=== PATIENT | female | born 1980 | race Caucasian/White ===

== ENCOUNTER 2016-08-31 13:21 | Emergency (ER) | payer BC, MEDICAID ==
[2016-08-31 13:54] VITALS: BP 133/84
--- NOTE | 2016-08-31 14:03 | UC ---
Back Pain HPI - HPI Summary HPI Summary: complaint of lower back pain since 04/2016 had MRI- herniated discs in lumbar spine seeing Dr Ibrahim for treatment- can't be seen until 09/10/16 d/t insurance hasn't started PT yet complaint of increase in pain last night - constant aching pain in left lumbar area that is radiating down her left leg denies fever , incontinence took tramadol last night without relief hasn't taken her regular medications and nothing for pain today because her medications make her feel tired - History of Current Complaint Hx Obtained From: Patient Hx Last Menstrual Period: HYSTERECTOMY Character: Aching Aggravating: Movement Alleviating: Rest Associated Signs And Symptoms: Positive: Pain with Weight Bearing <Celina Malik - Last Filed: 08/31/16 14:16> <Sandro Reveles - Last Filed: 09/01/16 11:16> - History of Current Complaint Chief Complaint: UCBackPain Stated Complaint: BACK PAIN Time Seen by Provider: 08/31/16 13:58 - Allergies/Home Medications Allergies/Adverse Reactions: Allergies Allergy/AdvReac Type Severity Reaction Status Date / Time Acetaminophen [From Tylenol] Allergy Severe See Comment Verified 05/26/16 11:04 Penicillins Allergy Severe Anaphylatic Verified 05/26/16 11:04 Shock PMH/Surg Hx/FS Hx/Imm Hx Previously Healthy: No - herniated discs lumbar spine Endocrine History Of: Denies: Diabetes, Thyroid Disease Cardiovascular History Of: Denies: Cardiac Disorders, Hypertension, Pacemaker/ICD Respiratory History Of: Denies: COPD, Asthma GI/ History Of: Denies: Gastroesophageal Reflux, Ulcer, Renal Disease Neurological History Of: Reports: Migraine Denies: CVA, Dementia, Seizures Other History Of: Negative For: Anticoagulant Therapy - Surgical History Surgical History: Yes Surgery Procedure, Year, and Place: HYSTERECTOMY, D&C HYSTEROSCOPY & ABLATION - Family History Known Family History: Positive: None Negative: Cardiac Disease, Hypertension, Diabetes Family History: NON CONTRIBUTORY - Social History Occupation: Employed Full-time Lives: With Family Alcohol Use: None Substance Use Type: None Smoking Status (MU): Heavy Every Day Tobacco Smoker Type: Cigarettes Amount Used/How Often: 1/2 PPD Household Exposure Type: Cigarettes Cessation Counseling: Patient Advised to Stop <Celina Malik - Last Filed: 08/31/16 14:16> Review of Systems Constitutional: Negative Skin: Negative Eyes: Negative ENT: Negative Respiratory: Negative Cardiovascular: Negative Gastrointestinal: Negative Genitourinary: Negative Motor: Negative Neurovascular: Negative Musculoskeletal: Other: - lower back pain Neurological: Negative Psychological: Negative All Other Systems Reviewed And Are Negative: Yes <Celina Malik - Last Filed: 08/31/16 14:16> Physical Exam Triage Information Reviewed: Yes Appearance: Well-Appearing, Well-Nourished, Pain Distress Vital Signs: Initial Vital Signs Temp 97.9 F 08/31/16 13:52 Pulse 101 08/31/16 13:52 Resp 16 08/31/16 13:52 BP 133/84 08/31/16 13:52 Pulse Ox 100 08/31/16 13:52 Vital Signs Reviewed: Yes Eyes: Positive: Conjunctiva Clear ENT: Positive: Normal ENT inspection, Pharynx normal. Negative: Nasal congestion Respiratory: Positive: Lungs clear, Normal breath sounds, No respiratory distress, No accessory muscle use Cardiovascular: Positive: RRR, No Murmur, Pulses Normal Abdomen Description: Positive: Nontender, No Organomegaly, Soft Bowel Sounds: Positive: Present Musculoskeletal: Positive: Other: - BACK- left paraspinal tenderness no pain with percussion of spine no brusign or deformites normal ROM Neurological: Positive: Alert, Other: - negative SLR, DTR intact bilaterally Psychological Exam: Normal <Celina Malik - Last Filed: 08/31/16 14:16> Vital Signs: Initial Vital Signs Temp 97.9 F 08/31/16 13:52 Pulse 101 08/31/16 13:52 Resp 16 08/31/16 13:52 BP 133/84 08/31/16 13:52 Pulse Ox 100 08/31/16 13:52 <Sandro Reveles - Last Filed: 09/01/16 11:16> Back Pain Course/Dx - Course Course Of Treatment: exam completed- exacerbation of chronic back pain. no red flags to warrant further imaging. already is under treatment for lower back pain. will refer to PT and start NSAIDS- continue flexeril and weight lifting restrictions until re-evaluation by PT and Dr Ibrahim - Differential Dx/Diagnosis Differential Diagnosis/HQI/PQRI: Herniated Disc, Strain, Sprain Provider Diagnoses: lower back pain with radiculopathy <Celina Malik - Last Filed: 08/31/16 14:16> - Course Course Of Treatment: I was available for consultation. This patient was seen by mid level provider. The patient was not presented, seen, or examined by me. WR. <Sandro Reveles - Last Filed: 09/01/16 11:16> Discharge <Celina Malik - Last Filed: 08/31/16 14:16> <Sandro Reveles - Last Filed: 09/01/16 11:16> - Discharge Plan Condition: Stable Disposition: HOME Prescriptions: Ibuprofen TAB* [Motrin TAB* 800 MG] 800 mg PO TID #30 tab Patient Education Materials: Lumbar Radiculopathy (ED) Forms: *Work Release Referrals: Rudolph López MD [Primary Care Provider] - Additional Instructions: Start flexeril as directed. Do not drink alcohol or drive while taking flexeril. Please call physical therapy for further evaluation and treatment. Take ibuprofen for fever or pain.do not take tramadol while on ibuprofen. Increase fluids and rest. Please review your discharge instructions. If your symptoms do not improve please call your primary care provider or return to urgent care.
[2016-08-31] MEDS ORDERED: Ibuprofen TAB* 400 MG PO ONE (14:11)
== END 2016-08-31 14:40 | disposition home or self-care (01) ==
LOC: UCEAST 13:21
DX: M54.5 Low back pain (principal); M54.16 Radiculopathy, lumbar region; Z88.6 Allergy status to analgesic agent; Z88.0 Allergy status to penicillin; F17.210 Nicotine dependence, cigarettes, uncomplicated
CPT/HCPCS: 99212; A9270-GY; G0463

== ENCOUNTER 2016-09-02 07:48 | Emergency (ER) | payer SELFPAY ==
[2016-09-02 08:06] VITALS: BP 127/81
[2016-09-02] MEDS ORDERED: Ketorolac INJ* 60 MG/2 ML VIAL IM ONE (09:06)
--- NOTE | 2016-09-02 09:37 | UC ---
Eusebia Vasques Salem, scribed for Betsy Huddleston MD on 09/02/16 at 0811 . Back Pain HPI - HPI Summary HPI Summary: Patient is a 36 y/o female who presents to the with sharp, 8/10 back pain since . She reports back pain began in April 2016. Pt saw Dr. López at that time, had an MRI taken, and a couple of herniated disks and a pinched nerve were found and was treated with tramadol. 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 She reports pain that is worse on the left and that radiates down her left leg to her knee. Pt took Ibuprofen today at 0430, but denies taking Tramadol. She states she has not been in to see physical therapy yet because of her 40hour work schedule. LMP 2006 due to hysterectomy. Pt received rx for Flexeril on 08/31/16. - History of Current Complaint Stated Complaint: RECHECK BACK PAIN Hx Obtained From: Patient Hx Last Menstrual Period: 2006 Onset/Duration: Gradual Onset, Lasting Weeks, Still Present Timing: Constant, Lasting Weeks Severity Initially: Moderate Severity Currently: Moderate Pain Intensity: 8 Pain Scale Used: 0-10 Numeric Back Pain: Radiates To - Left leg. Character: Sharp Aggravating: Movement Alleviating: Rest Associated Signs And Symptoms: Positive: Negative. Negative: Numbness, Tingling , Bladder Incontinence, Bowel Incontinence Related History: Occupational Injury - Risk Factors AAA Risk Factors: Negative TAD Risk Factors: Negative Cauda Equina Risk Factors: Negative Epidural Abscess Risk Factors: Negative - Allergies/Home Medications Allergies/Adverse Reactions: Allergies Allergy/AdvReac Type Severity Reaction Status Date / Time Acetaminophen [From Tylenol] Allergy Severe See Comment Verified 05/26/16 11:04 Penicillins Allergy Severe Anaphylatic Verified 05/26/16 11:04 Shock Prednisone Allergy Agitation Verified 09/02/16 08:03 Home Medications: Home Medications Divalproex Sodium [Depakote] 500 mg PO 09/02/16 [History] PMH/Surg Hx/FS Hx/Imm Hx Previously Healthy: No Endocrine History Of: Denies: Diabetes, Thyroid Disease Cardiovascular History Of: Denies: Cardiac Disorders, Hypertension, Pacemaker/ICD Respiratory History Of: Denies: COPD, Asthma GI/ History Of: Denies: Gastroesophageal Reflux, Ulcer, Renal Disease Neurological History Of: Reports: Migraine Denies: CVA, Dementia, Seizures Other History Of: Negative For: Anticoagulant Therapy - Surgical History Surgical History: Yes Surgery Procedure, Year, and Place: HYSTERECTOMY, D&C HYSTEROSCOPY & ABLATION - Family History Known Family History: Negative: Cardiac Disease, Hypertension, Diabetes - Social History Occupation: Employed Full-time Lives: With Family Alcohol Use: None Substance Use Type: None Smoking Status (MU): Heavy Every Day Tobacco Smoker Type: Cigarettes Amount Used/How Often: 1/2 PPD Household Exposure Type: Cigarettes Review of Systems Constitutional: Negative Gastrointestinal: Negative Musculoskeletal: Arthralgia, Myalgia, Other: - Back pain worse on the left side. Radiating down left leg. Neurological: Negative Psychological: Negative All Other Systems Reviewed And Are Negative: Yes Physical Exam Triage Information Reviewed: Yes Appearance: Well-Nourished, Ill-Appearing, Pain Distress Vital Signs: Initial Vital Signs Temp 97.6 F 09/02/16 07:56 Pulse 99 09/02/16 07:56 Resp 18 09/02/16 07:56 BP 127/81 09/02/16 07:56 Pulse Ox 100 09/02/16 07:56 Elevated diastolic pressure noted: 81. Vital Signs Reviewed: Yes Eyes: Positive: Conjunctiva Clear ENT Exam: Normal Neck: Positive: Supple, Nontender Respiratory: Positive: Lungs clear, Normal breath sounds, No respiratory distress Cardiovascular: Positive: RRR, No Murmur, Pulses Normal, Brisk Capillary Refill Abdomen Description: Positive: Nontender, Soft. Negative: Distended, Guarding, Splenomegaly Musculoskeletal: Positive: Strength Limited @, ROM Limited @ - back and left leg , Other: - able to walk on heels and toes, patellar and ankle reflexes intact. pain at sciatic notch to knee Neurological: Positive: Alert, Muscle Tone Normal Psychological Exam: Normal Skin Exam: Normal Re-Evaluation - Re-Evaluation First Eval Change: Unchanged - still in pain. Pt agrees to toradol injection. Will also check urine. Second Eval Re-Evaluation Time: 09:30 Change: Improved - after toradol 60mg IM. Back Pain Course/Dx - Course Course Of Treatment: I-STOP shows last Tramadol #240 April 21, [address] Niziol. UA trace ketones, neg leuks and blood. Toradol 60mg IM given with decrease pain from level 9 to 5. - Differential Dx/Diagnosis Differential Diagnosis/HQI/PQRI: Arthritis, Herniated Disc, Strain, Sprain Provider Diagnoses: 1. Sciatica. 2. High blood pressure without diagnosis of hypertension. 3. Tobacco Abuse Disorder. Discharge - Discharge Plan Condition: Stable Disposition: HOME Prescriptions: Methylprednisolone [Medrol Dosepak 4 MG*] 0 mg PO .SEE WILLA INSTRUCTION #1 packet Patient Education Materials: Sciatica (ED) Forms: *Work Release Referrals: Rudolph López MD [Primary Care Provider] - (call today for an appointment on September 12, 2016.) Additional Instructions: You may continue ibuprofen while taking the medrol dosepack, but you must take them both with food. Be advised that medrol is a steroid and can have the same adverse side effects as prednisone. Continue the flexeril and do the PT as prescribed. Return to urgent care if any new or worsening symptoms. The documentation as recorded by the Eusebia atkinson Salem accurately reflects the service I personally performed and the decisions made by , Betsy Huddleston MD.
== END 2016-09-02 09:33 | disposition home or self-care (01) ==
LOC: UCEAST 07:48
DX: M54.30 Sciatica, unspecified side (principal); R03.0 Elevated blood-pressure reading, without diagnosis of hypertension; F17.210 Nicotine dependence, cigarettes, uncomplicated; Z88.6 Allergy status to analgesic agent; Z88.0 Allergy status to penicillin
CPT/HCPCS: 81003; 96372; 99212; G0463; J1885

== ENCOUNTER 2016-11-29 08:15 | Day surgery (SDC) | payer OTHER ==
--- NOTE | 2016-11-24 06:36 | HP ---
PREOPERATIVE HISTORY AND PHYSICAL: DATE OF SURGERY: 11/29/16 DATE OF OFFICE VISIT: 11/23/16 ATTENDING SURGEON: Sammy Galvan MD. (DICTATED BY MATTHEW COLBERT) PROCEDURE: Right knee arthroscopic surgery. CHIEF COMPLAINT: Right knee pain. HISTORY OF PRESENT ILLNESS: Ms. Live is a 36-year-old female who presents to the clinic for ongoing right knee pain since 2013. She has had multiple injuries to the knee. She complains of giving out of the knee and pain along the medial and lateral aspect of the knee. Pain is worse with stairs and pivoting. She has failed conservative measures to include injections. Therefore, she has agreed to undergo right knee arthroscopic surgery with Dr. Galvan on 11/29/16. PAST MEDICAL HISTORY: 1. Anxiety. 2. Back pain. 3. Migraine. PAST SURGICAL HISTORY: 1. Tubal ligation in 2005. 2. Tonsillectomy. 3. Hysterectomy, possibly complicated by anesthesia, making the patient angry. Otherwise, no complications with prior anesthesia. MEDICATIONS: 1. Ibuprofen 800 mg 1 by mouth 3 times a day. 2. Cyclobenzaprine HCl 10 mg IV. 3. Hydrocodone/acetaminophen 5/325 mg as needed for pain. 4. BuSpar 10 mg take 1 by mouth twice a day. 5. Divalproex sodium ER 500 mg. 6. Propranolol HCl 20 mg 1 by mouth twice a day. ALLERGIES: PENICILLIN. FAMILY HISTORY: Positive for diabetes and heart disease. Denies family history of DVT or PE. SOCIAL HISTORY: She lives with her . She is currently out of work due to her back. She is a current smoker. She smokes less than 10 cigarettes a day. She denies alcohol use. REVIEW OF SYSTEMS: General: Negative for fevers, chills, or night sweats. No known anesthesia problems. HEENT: Negative for headache, lightheadedness or syncopal episodes. Positive for seasonal allergies. Integumentary: Negative for abrasions, lesions or open wounds. Cardiothoracic: Negative for chest pain , palpitations or edema. Negative for hypertension. Pulmonary: Negative for shortness of breath with exertion, chronic cough or COPD. GI: Negative for nausea, vomiting, diarrhea, constipation or GERD. : Negative for nocturia, urinary frequency, history of UTI or kidney problems. Musculoskeletal: Positive for right knee pain and positive for chronic neck pain. Neurologic: Negative for numbness, tingling, history of seizure, stroke or epilepsy. Endocrine: Negative for diabetes or thyroid disease. Hematologic: Negative for easy bruising, anemia or excessive bleeding. Negative for history of DVT or PE. Infectious Disease: Negative for history of MRSA, hepatitis C, or HIV. PHYSICAL EXAMINATION GENERAL: Well-developed, well-nourished, 36-year-old female in no acute distress. Alert and oriented. Appropriate mood and affect. VITAL SIGNS: Height 66, weight 190, pulse 83, blood pressure 109/80, temperature 98.4, BMI 30.7. HEENT: Normocephalic, atraumatic. PERRLA. Throat clear. NECK: Supple. PULMONARY: Lungs are clear to auscultation bilaterally. No wheezing, rhonchi, or rales. CARDIO: Regular rate and rhythm. S1, S2. No murmurs, rubs or gallops. No edema. No carotid bruits. ABDOMEN: Positive bowel sounds. Soft, nontender. NEUROLOGIC: Alert and oriented x3. Cranial nerves grossly intact. Sensation is intact to light touch. MUSCULOSKELETAL: Right lower extremity, the skin is intact. No warmth or erythema. Tenderness to palpation over the medial joint line, worse in the lateral joint line. No masses to palpation. Able to perform a full squat. Range of motion from 0 to 120. Stable to varus and valgus stress. Stable Juju. Negative posterior drawer. Positive Jamir. Calf is soft and nontender. +2 dorsalis and posterior tibialis pulses. Sensation intact to light touch distally. STUDIES: MRI from 2016 reveals possible medial meniscus tear. IMPRESSION: Right knee possible medial meniscus tear. PLAN: The patient is scheduled to undergo a right knee arthroscopic surgery with Dr. Galvan on 11/29/16. She will return to the office in 10 to 14 days postop for followup and suture removal. Percocet will be used for postoperative pain management. MATTHEW OCLBERT [id number]/[facility] #: [id number] MTDD
[~2016-11-29 08:15] MED LIST: Buffered Lidocaine 0.9% SYRIN* 5 ML/SYR SYRINGE INTRADERM ONE
[2016-11-29] MEDS ORDERED: Buffered Lidocaine 0.9% SYRIN* 5 ML/SYR SYRINGE ONE (08:33)
[2016-11-29] MEDS ORDERED: ceFAZolin 2 GM PREMIX(*) 0 GM/0 ML BAG IVPB ONE (08:33)
[2016-11-29] MEDS ORDERED: Bupivacaine 0.5% W/EPI SDV* 30 ML VIAL ONE (10:12)
[2016-11-29] MEDS ORDERED: Midazolam* 1 MG/ML 2 ML VIAL (2 MG) ONE (10:22)
[2016-11-29] MEDS ORDERED: fentaNYL* 50 MCG/ML 2 ML VIAL (100 MCG VIAL) ONE ×4 (10:22→12:38)
[2016-11-29] MEDS ORDERED: Levalbuterol HFA INHALER* 1 PUFF MDI ONE (10:48)
[2016-11-29] MEDS ORDERED: Clindamycin 900 MG IVPREMIX(* 900 MG/50 ML SDV IV ONE (11:15)
[2016-11-29] MEDS ORDERED: oxyCODONE TAB* 5 MG TAB PO PRN (11:57)
[2016-11-29] MEDS ORDERED: Nalbuphine* 20 MG/ML 1 ML VIAL IV PRN (11:57)
[2016-11-29] MEDS ORDERED: Levalbuterol 0.63MG/3ML NEB INH PRN (11:57)
[2016-11-29] MEDS ORDERED: HYDROmorphone* 1 MG/ML 1 ML SYR IV PRN (11:57)
[2016-11-29] MEDS ORDERED: PROCHLORPERAZINE INJ 5 MG/ML 2 ML VIAL IV PRN (11:57)
[2016-11-29] MEDS ORDERED: oxyCODONE TAB* 5 MG TAB ONE (12:37)
[2016-11-29] MEDS: fentaNYL* 50 MCG/ML 2 ML VIAL (100 MCG VIAL) IV PRN ×2 (12:39→13:04)
[2016-11-29 13:16] VITALS: BP 116/80
--- NOTE | 2016-11-30 04:34 | OP ---
CC: Dr. López * DATE OF OPERATION: 11/29/16 - [facility] DATE OF : 80 SURGICAL CARE: Right knee. SURGEON: Sammy Galvan MD RN INTERNAL MEDICINE: MATTHEW Finney, financial assistance specialist. ANESTHESIOLOGIST: Dr. Tejas Lewis ANESTHESIA: General PRE-OP DIAGNOSIS: Right knee medial meniscal tear. POST-OP DIAGNOSIS: No medial meniscal tear, there was a medial plica and cartilage flap tearing of the medial femoral condyle. OPERATIVE PROCEDURE: Right knee examination under anesthesia and arthroscopic limited anterior synovectomy with removal of plica and chondroplasty medial femoral condyle. COMPLICATIONS: There were no complications. DRAINS: There were no drains. TOURNIQUET: Tourniquet control was utilized on the right leg. CONDITION: Was stable to the recovery room. INDICATIONS: Persistent right knee pain with MRI scan showing medial meniscal tear. DESCRIPTION OF PROCEDURE: The patient was brought to the operating room and placed on the operating table in supine position. Following the administration of the anesthetic, the right proximal thigh was wrapped with a tourniquet. The right leg was prepped from the tourniquet to the foot and then draped free, and carefully sealed off in the usual fashion for arthroscopic surgery of the knee. The leg, ankle and foot portion were sealed off with an impermeable drape with a Vi-Drape wrapped around the calf at the top of that. We did our universal protocol time-out confirming Deb Live and the plan for right knee arthroscopic surgery. We all agreed and we proceeded. The examination of the right knee under anesthesia showed a stable MCL and stable LCL, normal Juju and posterior drawer. The leg was exsanguinated, the tourniquet elevated to 275. The right knee was set up for arthroscopy with the arthroscope lateral to the patellar tendon, probe and operating instruments medial to the patellar tendon and an inflow catheter superomedial to the patella. The survey of the joint showed that the patellofemoral joint was in satisfactory condition. There was a medial plica with some thickening and some anterior synovitis just inferior to the patella. The medial gutter clear, lateral gutter clear, lateral femoral condyle, lateral meniscus, popliteus, and lateral tibial plateau all satisfactory condition. ACL and PCL satisfactory. The medial femoral condyle had some cartilage flapping towards the intercondylar notch on the lateral side and this was shaved smooth with a shaver. The medial meniscus was carefully probed especially at the level of the MCL and just posterior to that on the inferior side where the MRI scan had said the cartilage tear went to the articular surface of the inferior medial meniscus. I could not appreciate any tearing in this region. So, I did not proceed with any surgical care on the medial meniscus. Once the pathology was evident, I proceeded with an anterior synovectomy, removal of the medial plica, and chondroplasty of the medial femoral condyle, and procedure was not complicated. We did photographs and then the tourniquet was deflated. The knee was irrigated with another 5 L of saline irrigation solution. Then emptied, then instilled with Marcaine 0.5% with epinephrine 28 to 30 mL and the skin portals closed with interrupted 3-0 Surgipro stitches and a dressing was done after washing and drying with Betadine-soaked release, sterile gauze, sterile Webril, cryotherapy cuff, ABD pads and a 6-inch Cas bandage loosely applied. The patient was returned to the recovery room in stable and satisfactory condition having tolerated the procedure very well. [id number]/[facility] #: [id number] DEMARCUS
== END 2016-11-29 13:59 | disposition home or self-care (01) ==
LOC: OR 08:15
PROVIDERS: ATTEND Orthopaedic Surgery
PROC: 0SBC4ZZ Excision of Right Knee Joint, Percutaneous Endoscopic Approach (ICD-10-PCS; principal; 2016-11-29 10:00)
DX: M67.51 Plica syndrome, right knee (principal); M25.561 Pain in right knee; F41.9 Anxiety disorder, unspecified; M54.9 Dorsalgia, unspecified; G43.909 Migraine, unspecified, not intractable, without status migrainosus; Z79.899 Other long term (current) drug therapy
CPT/HCPCS: 88304; A9270-GY; J0690; J2250; J3010

== ENCOUNTER 2016-12-08 11:33 | Emergency (ER) | payer OTHER ==
[2016-12-08 15:00] VITALS: BP 112/80
--- NOTE | 2016-12-08 15:03 | RAD ---
INDICATION: Pain and swelling. COMPARISON: None TECHNIQUE: Duplex interrogation of the Lowerextremity was performed. FINDINGS: Deep veins: The common femoral, great saphenous, profunda femoris, proximal, mid, and distal deep femoral, popliteal, posterior tibial, and peroneal veins are patent. There is normal compressibility, augmentation, and phasic flow. Superficial veins: There are no findings of superficial thrombophlebitis. Popliteal fossa:There is no evidence of a popliteal cyst. Soft tissues:There are no soft tissue abnormalities. IMPRESSION: Normal examination. No evidence of deep venous thrombosis
--- NOTE | 2016-12-08 16:59 | ED ---
wenceslao Vasques Timothy, scribed for Prabhakar Benavides MD on 12/08/16 at 1453 . Lower Extremity - HPI Summary HPI Summary: Deb Live is a 36 yo female presenting to [facility] with 5/10 sharp pain in her right calf radiating to the back of her right knee in the form of a "ashley horse" beginning 12/08/16 atfer she stepped out of a truck. Pt notes she had surgery on her right knee 11/29/16, and that her pain increases with walking and movement. Pt denies CP and SOB. She self-medicated with ibuprofen at 0700 this morning with no relief. Her MHx includes migraine, asthma, hysterectomy, arthritis, herniated disk, anxiety, claustrophobia. - History of Current Complaint Chief Complaint: UCLowerExtremity Stated Complaint: PAIN IN BACK OF LEG Time Seen by Provider: 12/08/16 12:18 Hx Obtained From: Patient Hx Last Menstrual Period: 2006 Mechanism Of Injury: Unknown Onset of Pain: Immediate Onset/Duration: Still Present Severity Initially: Moderate Severity Currently: Moderate Pain Intensity: 5 Pain Scale Used: 0-10 Numeric Location: Is Discrete @ - RLE calf Character Of Pain: Sharp Aggravating Factor(s): Ambulation, Movement - Allergies/Home Medications Allergies/Adverse Reactions: Allergies Allergy/AdvReac Type Severity Reaction Status Date / Time Acetaminophen [From Tylenol] Allergy Severe See Comment Verified 12/08/16 11:42 Penicillins Allergy Severe Anaphylatic Verified 12/08/16 11:42 Shock Naproxen Allergy Hives Verified 12/08/16 11:42 Prednisone Allergy Agitation Verified 12/08/16 11:42 Home Medications: Home Medications Aspirin TAB* [Aspirin 325 MG TAB*] 1 tab PO 12/08/16 [History] Ibuprofen TAB* [Motrin TAB* 600 MG] 600 mg PO PRN 12/08/16 [History] PMH/Surg Hx/FS Hx/Imm Hx Endocrine/Hematology History: Denies: Hx Anticoagulant Therapy, Hx Diabetes, Hx Thyroid Disease Cardiovascular History: Denies: Hx Hypertension, Hx Pacemaker/ICD Respiratory History: Reports: Hx Asthma - NO PROBLEMS SINCE 2000 Denies: Hx Chronic Obstructive Pulmonary Disease (COPD) GI History: Denies: Hx Ulcer History: Denies: Hx Renal Disease Musculoskeletal History: Reports: Hx Arthritis - BACK AND RIGHT KNEE Sensory History: Reports: Hx Contacts or Glasses - GLASSES Denies: Hx Hearing Aid Opthamlomology History: Reports: Hx Contacts or Glasses - GLASSES Neurological History: Reports: Hx Migraine - TREATS WITH IMITREX- AND ROUTINE MEDICATION- CAFFEINE, Other Neuro Impairments/Disorders - PAIN CLINIC PATIENT Denies: Hx Dementia, Hx Seizures Psychiatric History: Reports: Hx Anxiety - ON MEDICATION FOR Denies: Hx Panic Disorder, Hx Substance Abuse - Surgical History Surgery Procedure, Year, and Place: HYSTERECTOMY, D&C HYSTEROSCOPY & ABLATION. RIGHT KNEE Hx Anesthesia Reactions: Yes - WAKES UP ANGRY Infectious Disease History: No Infectious Disease History: Denies: Hx Clostridium Difficile, Hx Hepatitis, Hx Human Immunodeficiency Virus (HIV), Hx of Known/Suspected MRSA, Hx Shingles, Hx Tuberculosis, Hx Known/ Suspected VRE, Hx Known/Suspected VRSA, History Other Infectious Disease, Traveled Outside the in Last 30 Days - Family History Known Family History: Positive: None Negative: Cardiac Disease, Hypertension, Diabetes Family History: NON CONTRIBUTORY - Social History Alcohol Use: None Substance Use Type: Reports: None Smoking Status (MU): Heavy Every Day Tobacco Smoker Type: Cigarettes Amount Used/How Often: 5-6 CIGARETTES PER DAY X 3 YEARS Have You Smoked in the Last Year: Yes Review of Systems Constitutional: Negative Eyes: Negative ENT: Negative Cardiovascular: Negative Negative: Chest Pain Respiratory: Negative Negative: Shortness Of Breath Gastrointestinal: Negative Genitourinary: Negative Musculoskeletal: Other - RLE calf pain Skin: Negative Neurological: Negative Psychological: Normal All Other Systems Reviewed And Are Negative: Yes Physical Exam - Summary Physical Exam Summary: The patient is well-nourished in no acute distress and in no acute pain. The skin is warm and dry and skin color reflects adequate perfusion. Her RLE is not hot to touch or red. There is a surgical incision on the RLE knee that appears to be healing well and is not edematous, erythematous, or hot to touch. HEENT: The head is normocephalic and atraumatic. The pupils are equal and reactive. The conjunctivae are clear and without drainage. Nares are patent and without drainage. Mouth reveals moist mucous membranes and the throat is without erythema and exudate. The external ears are intact. Neck is supple with full range of motion and non-tender. There are no carotid bruits. There is no neck vein distension. Respiratory: Chest is non-tender. Lungs are clear to auscultation and breath sounds are symmetrical and equal. Cardiovascular: Heart is regular rate and rhythm. There is no murmur or rub auscultated. There is no peripheral edema and pulses are symmetrical and equal. Abdomen: Not examined Musculoskeletal: There is no back pain noted. Extremities are non-tender with full range of motion. There is good capillary refill. There is no peripheral edema or calf tenderness elicited. She has good pulses distally in the RLE, and her RLE achilles tendon is intact. There is tenderness in the RLE calf and distal posterior thigh. There is mild edema of the RLE knee, and she has full extension of the knee but is limited to 90 degree flexion. Neurological: Patient is alert and oriented to person, place and time. The patient has symmetrical motor strength in all four extremities. Cranial nerves are grossly intact. Deep tendon reflexes are symmetrical and equal in all four extremities. Distal neurovascular is intact. Psychiatric: The patient has an appropriate affect and does not exhibit any anxiety or depression. Triage Information Reviewed: Yes Vital Signs On Initial Exam: Initial Vitals Temp Pulse Resp BP Pulse Ox 98.4 F 96 18 122/86 98 12/08/16 11:44 12/08/16 11:44 12/08/16 11:44 12/08/16 11:44 12/08/16 11:44 Vital Signs Reviewed: Yes Diagnostics - Vital Signs Vital Signs Temp Pulse Resp BP Pulse Ox 12/08/16 11:44 98.4 F 96 18 122/86 98 - Laboratory Lab Statement: Any lab studies that have been ordered have been reviewed, and results considered in the medical decision making process. - Ultrasound No standard instances Ultrasound Interpretation: No Acute Changes - IMPRESSION: Normal examination. No evidence of deep venous thrombosis Ultrasound Interpretation Completed By: Radiologist - RLE Venous Doppler Re-Evaluation - Re-Evaluation First Eval Re-Evaluation Time: 15:10 Change: Unchanged Comment: Discussed imaging studies with PT, she is agreeable to current course of Tx. Lower Extremity Course/Dx - Course Assessment/Plan: Deb Live is a 36 yo female presenting to [facility] with 5/10 sharp RLE calf pain sinc eyesterday, having had surgery on her right knee . She declines pain medication at the time of examination. Pt medication list reviewed this visit. She will have an US performed to r/o DVT. Her RLE venous doppler suggests normal examination. No evidence of deep venous thrombosis. After clinical examination and review of her imaging study, she will be discharged home with - Diagnoses Differential Diagnosis/HQI/PQRI: Positive: DVT, Strain Provider Diagnoses: Strain of left hamstring, Strain of gastrocnemius muscle Discharge - Discharge Plan Condition: Stable Disposition: HOME Patient Education Materials: Muscle Strain (ED) Referrals: Rudolph López MD [Primary Care Provider] - 2 Days Additional Instructions: Please follow up with your primary care physician regarding your visit to urgent care today. Take ibuprofen for pain management as needed. Return to urgent care or the emergency department with any new or recurring symptoms. The documentation as recorded by the wenceslao atkinson Timothy accurately reflects the service I personally performed and the decisions made by , Prabhakar Benavides MD.
== END 2016-12-08 15:32 | disposition home or self-care (01) ==
LOC: UCEAST 11:33
DX: S76.812A Strain of other specified muscles, fascia and tendons at thigh level, left thigh, initial encounter (principal); F17.210 Nicotine dependence, cigarettes, uncomplicated; Z88.0 Allergy status to penicillin; Z79.82 Long term (current) use of aspirin; F41.9 Anxiety disorder, unspecified
CPT/HCPCS: 99211; G0463

== ENCOUNTER 2017-04-03 17:00 | Emergency (ER) | payer OTHER ==
[2017-04-03 17:15] VITALS: BP 119/82
--- NOTE | 2017-04-03 17:22 | UC ---
Hand/Wrist HPI - HPI Summary HPI Summary: 36 year old female presents with complains of left hand pain with no trauma. - History Of Current Complaint Chief Complaint: UCUpperExtremity Stated Complaint: HAND PAIN Time Seen by Provider: 04/03/17 17:18 Hx Obtained From: Patient Hx Last Menstrual Period: 2006 Onset/Duration: Sudden Onset Severity Initially: Moderate Severity Currently: Moderate Pain Scale Used: 0-10 Numeric - 7 Character Of Pain: Sharp Aggravating Factor(s): Movement - Allergies/Home Medications Allergies/Adverse Reactions: Allergies Allergy/AdvReac Type Severity Reaction Status Date / Time Acetaminophen [From Tylenol] Allergy Severe See Comment Verified 04/03/17 17:15 Penicillins Allergy Severe Anaphylatic Verified 04/03/17 17:15 Shock Naproxen Allergy Hives Verified 04/03/17 17:15 Oxycodone Allergy Unknown Verified 04/03/17 17:15 Reaction Details Prednisone Allergy Agitation Verified 04/03/17 17:15 PMH/Surg Hx/FS Hx/Imm Hx Previously Healthy: Yes Other History Of: Negative For: Anticoagulant Therapy - Surgical History Surgical History: Yes Surgery Procedure, Year, and Place: HYSTERECTOMY, D&C HYSTEROSCOPY & ABLATION. RIGHT KNEE - Family History Known Family History: Positive: None Negative: Cardiac Disease, Hypertension, Diabetes Family History: NON CONTRIBUTORY - Social History Alcohol Use: None Substance Use Type: None Smoking Status (MU): Current Every Day Smoker Type: Cigarettes Amount Used/How Often: 5-6 CIGARETTES PER DAY X 3 YEARS Have You Smoked in the Last Year: Yes Household Exposure Type: Cigarettes Review of Systems Constitutional: Negative Skin: Negative Eyes: Negative ENT: Negative Respiratory: Negative Cardiovascular: Negative Gastrointestinal: Negative Genitourinary: Negative Motor: Negative Neurovascular: Negative Musculoskeletal: Other: - left hand/wrist pain/swelling Neurological: Negative Psychological: Negative All Other Systems Reviewed And Are Negative: Yes Physical Exam Triage Information Reviewed: Yes Appearance: Well-Appearing Vital Signs: Initial Vital Signs Temp 36.5 C 04/03/17 17:12 Pulse 100 04/03/17 17:12 Resp 16 04/03/17 17:12 BP 119/82 04/03/17 17:12 Pulse Ox 100 04/03/17 17:12 Eye Exam: Normal ENT Exam: Normal Dental Exam: Normal Neck exam: Normal Neck: Positive: 1 Respiratory Exam: Normal Cardiovascular Exam: Normal Abdominal Exam: Normal Musculoskeletal: Positive: Other: - left hand/wrist pain Neurological Exam: Normal Psychological Exam: Normal Skin Exam: Normal Hand/Wrist Course/Dx - Differential Dx/Diagnosis Provider Diagnoses: left wrist/hand pain Discharge - Discharge Plan Condition: Stable Disposition: HOME Prescriptions: Meloxicam [Mobic] 7.5 mg PO BID PC #30 tab Patient Education Materials: Tendinitis (ED) Referrals: Rudolph López MD [Primary Care Provider] - Rudolph Mcgee MD [Medical Doctor] -
== END 2017-04-03 18:49 | disposition home or self-care (01) ==
LOC: UCEAST 17:00
DX: M79.642 Pain in left hand (principal); M25.532 Pain in left wrist; Z90.710 Acquired absence of both cervix and uterus; Z88.6 Allergy status to analgesic agent; Z88.5 Allergy status to narcotic agent; Z88.0 Allergy status to penicillin; Z88.8 Allergy status to other drugs, medicaments and biological substances; F17.210 Nicotine dependence, cigarettes, uncomplicated
CPT/HCPCS: 99211; G0463

== ENCOUNTER 2017-06-26 12:58 | Emergency (ER) | payer OTHER ==
[2017-06-26] MEDS ORDERED: Ketorolac INJ* 60 MG/2 ML VIAL IM ONE (14:14)
[2017-06-26] MEDS ORDERED: Ondansetron ODT TAB* 4 MG PO ONE (14:14)
--- NOTE | 2017-06-26 14:48 | RAD ---
HISTORY: Headache COMPARISONS: March 21, 2011 TECHNIQUE: Multiple contiguous axial CT scans were obtained of the head without intravenous contrast. FINDINGS: HEMORRHAGE/INFARCT: There is no hemorrhage or acute infarct. MASSES/SHIFT: There is no mass or shift. EXTRA-AXIAL SPACES: There are no extra-axial fluid collections. SULCI AND VENTRICLES: The sulci and ventricles are normal in size and position for the patient's stated age. CEREBRUM: There are no focal parenchymal abnormalities. BRAINSTEM: There are no focal parenchymal abnormalities. CEREBELLUM: There are no focal parenchymal abnormalities. VESSELS: The vessels are grossly normal. PARANASAL SINUSES: Again noted is opacification of the left maxillary sinus mucous changes cyst versus polypoid mucosal thickening. ORBITS: The orbits are unremarkable. BONES AND SOFT TISSUE: No bone or soft tissue abnormalities are noted. OTHER: None IMPRESSION: NO ACUTE INTRACRANIAL PATHOLOGY.
--- NOTE | 2017-06-26 15:07 | UC ---
Marlyn Vasques Emily, scribed for Bereket Carbajal MD on 06/26/17 at 1413 . Headache HPI - HPI Summary HPI Summary: This patient is a 36 year old F presenting to urgent care with a chief complaint of frontal headache that began at 0330 today. Pt reports having 4 migraines since 06/24/17. The patient rates the pain currently 6/10 in severity. The patient rates the pain 10/10 in severity at its worst. Symptoms aggravated by light and smells. Symptoms alleviated by nothing. Patient reports wavy lines in R sided vision, vomiting, and SOB. Patient denies fever, chills, weakness, and numbness. Pt reports having similar symptoms previously when she was . - History Of Current Complaint Chief Complaint: UCGeneralIllness Stated Complaint: HEADACHE Time Seen by Provider: 06/26/17 14:02 Hx Obtained From: Patient Hx Last Menstrual Period: 2006 Onset/Duration: Sudden Onset, Lasting Hours, Still Present Initially Headache Was: Initial Pain Scale(0-10)= - 10, Severe Currently Pain Is: Current Pain Scale(0-10)= - 6, Moderate Pain Intensity: 6 Pain Scale Used: 0-10 Numeric Timing: Constant Character: Migraine Location of Headache: Frontal Aggravating Factor(s): Bright Lights, Other - Smells Allevating Factor(s): Nothing Associated Signs And Symptoms: Positive: Vomiting, Other (Noted In Comments) - Positive "wavy lines" in R sided vision and SOB. Negative numbness, weakness, fever, and chills - Allergies/Home Medications Allergies/Adverse Reactions: Allergies Allergy/AdvReac Type Severity Reaction Status Date / Time Acetaminophen [From Tylenol] Allergy Severe See Comment Verified 06/26/17 13:30 Penicillins Allergy Severe Anaphylatic Verified 06/26/17 13:30 Shock Naproxen Allergy Hives Verified 06/26/17 13:30 Oxycodone Allergy Unknown Verified 06/26/17 13:30 Reaction Details Prednisone Allergy Agitation Verified 06/26/17 13:30 Home Medications: Home Medications SUMAtriptan TAB* [Imitrex TAB*] 25 mg PO DAILY PRN 06/26/17 [History Confirmed 06/26/17] PMH/Surg Hx/FS Hx/Imm Hx Previously Healthy: No Respiratory History: Asthma Neurological History: Migraine Psychological History: Anxiety Other History Of: Negative For: Anticoagulant Therapy - Surgical History Surgical History: Yes Surgery Procedure, Year, and Place: HYSTERECTOMY, D&C HYSTEROSCOPY & ABLATION. RIGHT KNEE - Family History Known Family History: Positive: None Negative: Cardiac Disease, Hypertension, Diabetes Family History: NON CONTRIBUTORY - Social History Occupation: Employed Part-time Lives: With Family Alcohol Use: None Substance Use Type: None Smoking Status (MU): Light Every Day Tobacco Smoker Type: Cigarettes Amount Used/How Often: 4 sigarettes/day Have You Smoked in the Last Year: Yes Household Exposure Type: Cigarettes - Immunization History Most Recent Influenza Vaccination: none Review of Systems Constitutional: Other - Negative fever and chills Eyes: Other - Positive "wavy lines" in R sided vision Respiratory: Shortness Of Breath Gastrointestinal: Vomiting Neurological: Headache, Other - Negative weakness and numbness All Other Systems Reviewed And Are Negative: Yes Physical Exam Triage Information Reviewed: Yes Vital Signs: Initial Vital Signs Temp 99.6 F 06/26/17 13:26 Pulse 128 06/26/17 13:26 Resp 16 06/26/17 13:26 BP 125/83 06/26/17 13:26 Pulse Ox 98 06/26/17 13:26 Vital Signs Reviewed: Yes - Additional Comments General: well-appearing, mild pain distress Skin: warm, color reflects adequate perfusion, dry Head: normal Eyes: EOMI, LIANNA ENT: normal Neck: supple, nontender Respiratory: CTA, breath sounds present Cardiovascular: RRR Abdomen: soft, nontender Bowel: present Musculoskeletal: normal, strength/ROM intact Neurological: normal, sensory/motor intact, A&O x3 Psychological: affect/mood appropriate Diagnostics - Radiology Brain CT Radiology Interpretation Completed By: Radiologist - Brain CT reveals, per radiologist, no acute intracranial pathology. ED physician has reviewed this radiology report. Headache Course/Dx - Course Course Of Treatment: PAIN DECREASED IN ED. DISCUSSED RESULTS WITH PATIENT. SHE WISHES TO GO HOME. F/U PMD; RETURN OR GO TO ED IF WORSE. - Differential Dx/Diagnosis Provider Diagnoses: HEADACHE Discharge - Discharge Plan Condition: Stable Disposition: HOME Patient Education Materials: Acute Headache (ED) Referrals: Rudolph López MD [Primary Care Provider] - Additional Instructions: FOLLOW UP WITH YOUR DOCTOR. GO TO THE EMERGENCY DEPARTMENT FOR ANY WORSENING OF YOUR CONDITION; PAIN, WEAKNESS, YOU FEEL ILL OR QUESTIONS OR CONCERNS. The documentation as recorded by the Marlyn atkinson Emily accurately reflects the service I personally performed and the decisions made by me, Bereket Carbajal MD.
[2017-06-26 15:12] VITALS: BP 124/86
== END 2017-06-26 15:11 | disposition home or self-care (01) ==
LOC: UCEAST 12:58
DX: R51 Headache (principal); R11.10 Vomiting, unspecified; H53.9 Unspecified visual disturbance; R06.02 Shortness of breath; J45.909 Unspecified asthma, uncomplicated; F41.9 Anxiety disorder, unspecified; Z90.710 Acquired absence of both cervix and uterus; Z88.6 Allergy status to analgesic agent; Z88.5 Allergy status to narcotic agent; Z88.0 Allergy status to penicillin; F17.210 Nicotine dependence, cigarettes, uncomplicated
CPT/HCPCS: 70450; 96372; 99212; A9270-GY; G0463; J1885

== ENCOUNTER 2017-07-03 23:16 | Emergency (ER) | payer OTHER ==
[2017-07-04] MEDS ORDERED: Ibuprofen TAB* 800 MG PO ONE (00:15)
--- NOTE | 2017-07-04 00:49 | ED ---
Madyson Vasques Edward, scribed for Isabella Martin MD on 07/04/17 at 0015 . Adult Trauma - HPI Summary HPI Summary: 37 y/o female presents to the ED c/o immediate onset BOWERS located at the back of the head radiating to the front R side of the head s/p fall at around 19:00 tonight. Pt slipped on ice. Associated sx: lower back pain and R hand pain. Not sure of LOC. PMHx migraines. - History of Current Complaint Chief Complaint: EDGeneral Stated Complaint: FALL, HAND/BACK PAIN, HEADACHE Time Seen by Provider: 07/04/17 00:09 Hx Obtained From: Patient Hx Last Menstrual Period: 2006 Mechanism of Injury: Fall Loss of Consciousness: unsure Onset/Duration: Started Hours Ago Onset of Pain: Immediate Pain Intensity: 6 Pain Scale Used: 0-10 Numeric Location: Head, Back, Extremities - R hand Aggravating Factor(s): Movement - R hand Alleviating Factor(s): Nothing Associated Signs & Symptoms: Positive: Other: - lower back pain, pain @ R hand. Negative: Loss of Consciousness - unsure - Allergy/Home Medications Allergies/Adverse Reactions: Allergies Allergy/AdvReac Type Severity Reaction Status Date / Time Acetaminophen [From Tylenol] Allergy Severe See Comment Verified 06/26/17 13:30 Penicillins Allergy Severe Anaphylatic Verified 06/26/17 13:30 Shock Naproxen Allergy Hives Verified 06/26/17 13:30 Oxycodone Allergy Unknown Verified 06/26/17 13:30 Reaction Details Prednisone Allergy Agitation Verified 06/26/17 13:30 PMH/Surg Hx/FS Hx/Imm Hx Previously Healthy: No Endocrine/Hematology History: Denies: Hx Anticoagulant Therapy, Hx Diabetes, Hx Thyroid Disease Cardiovascular History: Denies: Hx Hypertension, Hx Pacemaker/ICD Respiratory History: Reports: Hx Asthma Denies: Hx Chronic Obstructive Pulmonary Disease (COPD) GI History: Denies: Hx Ulcer History: Denies: Hx Renal Disease Musculoskeletal History: Reports: Hx Arthritis - BACK AND RIGHT KNEE Sensory History: Reports: Hx Contacts or Glasses - GLASSES Denies: Hx Hearing Aid Opthamlomology History: Reports: Hx Contacts or Glasses - GLASSES Neurological History: Reports: Hx Migraine - TREATS WITH IMITREX- AND ROUTINE MEDICATION- CAFFEINE, Other Neuro Impairments/Disorders - PAIN CLINIC PATIENT Denies: Hx Dementia, Hx Seizures Psychiatric History: Reports: Hx Anxiety - ON MEDICATION FOR Denies: Hx Panic Disorder, Hx Substance Abuse - Surgical History Surgery Procedure, Year, and Place: HYSTERECTOMY, D&C HYSTEROSCOPY & ABLATION. RIGHT KNEE Hx Anesthesia Reactions: Yes - WAKES UP ANGRY Infectious Disease History: No Infectious Disease History: Denies: Hx Clostridium Difficile, Hx Hepatitis, Hx Human Immunodeficiency Virus (HIV), Hx of Known/Suspected MRSA, Hx Shingles, Hx Tuberculosis, Hx Known/ Suspected VRE, Hx Known/Suspected VRSA, History Other Infectious Disease, Traveled Outside the [place] in Last 30 Days - Family History Known Family History: Positive: None Negative: Cardiac Disease, Hypertension, Diabetes Family History: NON CONTRIBUTORY - Social History Alcohol Use: None Hx Substance Use: No Substance Use Type: Reports: None Hx Tobacco Use: Yes Smoking Status (MU): Light Every Day Tobacco Smoker Type: Cigarettes Amount Used/How Often: 4 sigarettes/day Have You Smoked in the Last Year: Yes Review of Systems Constitutional: Negative Eyes: Negative ENT: Negative Cardiovascular: Negative Respiratory: Negative Gastrointestinal: Negative Genitourinary: Negative Positive: Arthralgia - lower back pain, pain @ R hand Skin: Negative Positive: Headache Psychological: Normal All Other Systems Reviewed And Are Negative: Yes Physical Exam - Summary Physical Exam Summary: VITAL SIGNS: Reviewed. GENERAL: Patient is a well-developed and nourished (MALE OR FEMALE) who is lying comfortable in the stretcher. Patient is not in any acute respiratory distress. HEAD AND FACE: No signs of trauma. No ecchymosis, hematomas or skull depressions. No sinus tenderness. EYES: PERRLA, EOMI x 2, No injected conjunctiva, no nystagmus. EARS: Hearing grossly intact. Ear canals and tympanic membranes are within normal limits. MOUTH: Oropharynx within normal limits. NECK: Supple, trachea is midline, no adenopathy, no JVD, no carotid bruit, no c- spine tenderness, neck with full ROM. CHEST: Symmetric, no tenderness at palpation LUNGS: Clear to auscultation bilaterally. No wheezing or crackles. CVS: Regular rate and rhythm, S1 and S2 present, no murmurs or gallops appreciated. ABDOMEN: Soft, non-tender. No signs of distention. No rebound no guarding, and no masses palpated. Bowel sounds are normal. EXTREMITIES: FROM in all major joints, no edema, no cyanosis or clubbing. Tenderness at the R hand, no swelling. NEURO: Alert and oriented x 3. No acute neurological deficits. Speech is normal and follows commands. SKIN: Dry and warm Triage Information Reviewed: Yes Vital Signs On Initial Exam: Initial Vitals Temp Pulse Resp BP Pulse Ox 98.2 F 89 18 134/88 100 07/03/17 23:17 07/03/17 23:17 07/03/17 23:17 07/03/17 23:17 07/03/17 23:17 Vital Signs Reviewed: Yes Diagnostics - Vital Signs Vital Signs Temp Pulse Resp BP Pulse Ox 07/03/17 23:17 98.2 F 89 18 134/88 100 - Laboratory Lab Statement: Any lab studies that have been ordered have been reviewed, and results considered in the medical decision making process. Adult Trauma Course/Dx - Course Assessment/Plan: 37 y/o female presents to the ED c/o immediate onset BOWERS located at the back of the head radiating to the front R side of the head s/p fall at around 19:00 tonight. Pt slipped on ice. Associated sx: lower back pain and R hand pain. Not sure of LOC. PMHx migraines. Hand XR negative. Pt will be d /c home with f/u with PCP. - Diagnoses Provider Diagnoses: Head injury, Hand contusion Discharge - Discharge Plan Condition: Stable Disposition: HOME Patient Education Materials: Head Injury (ED), Contusion in Adults (ED) Referrals: Rudolph López MD [Primary Care Provider] - 4 Days (PLEASE F/U IN 3-5 DAYS NEEDED) Additional Instructions: PLEASE RETURN TO THE ED FOR THE RETURN OR WORSENING OF SYMPTOMS The documentation as recorded by the Madyson atkinson Edward accurately reflects the service I personally performed and the decisions made by , Isabella Martin MD.
[2017-07-04 01:12] VITALS: BP 121/94
--- NOTE | 2017-07-04 07:48 | RAD ---
INDICATION: Right hand injury. TECHNIQUE: 4 views of the right hand were obtained. FINDINGS: The bones are in normal alignment. No fracture is seen. Joint spaces appear maintained. IMPRESSION: NO EVIDENCE FOR FRACTURE.
== END 2017-07-04 01:14 | disposition home or self-care (01) ==
LOC: ED 23:16
DX: S60.221A Contusion of right hand, initial encounter (principal); S09.90XA Unspecified injury of head, initial encounter; M54.5 Low back pain; F17.210 Nicotine dependence, cigarettes, uncomplicated; R51 Headache; W00.9XXA Unspecified fall due to ice and snow, initial encounter; Y92.9 Unspecified place or not applicable
CPT/HCPCS: 99282; A9270-GY

== ENCOUNTER 2018-01-24 11:45 | Emergency (ER) | payer OTHER ==
[2018-01-24 13:15] VITALS: BP 143/93
--- NOTE | 2018-01-24 13:35 | UC ---
Skin Complaint HPI - HPI Summary HPI Summary: pain red swollen and tender left great toe--lateral aspect of nail bed - History of Current Complaint Chief Complaint: UCUpperExtremity Time Seen by Provider: 01/24/18 13:26 Stated Complaint: RED/PAINFUL TOE Hx Obtained From: Patient Hx Last Menstrual Period: 2006 ?: No Onset/Duration: Gradual Onset, Lasting Weeks - 2, Still Present Timing: Constant Pain Intensity: 5 Pain Scale Used: 0-10 Numeric Location: Discrete Character: Pain, Redness Aggravating Factor(s): Touch Alleviating Factor(s): Nothing Associated Signs & Symptoms: Positive: Negative - Allergy/Home Medications Allergies/Adverse Reactions: Allergies Allergy/AdvReac Type Severity Reaction Status Date / Time acetaminophen Allergy GI Upset Verified 01/24/18 13:18 naproxen Allergy Hives Verified 01/24/18 13:18 oxycodone Allergy Unknown Verified 01/24/18 13:18 Reaction Details Penicillins Allergy Anaphylatic Verified 01/24/18 13:18 Shock prednisone Allergy Agitation Verified 01/24/18 13:18 Home Medications: Home Medications Amitriptyline TAB* [Elavil TAB*] 50 mg PO BEDTIME 01/24/18 [History Confirmed ] Baclofen TAB* [Lioresal TAB*] 10 mg PO DAILY 01/24/18 [History Confirmed ] Fluticasone HFA 220 mcg(NF) [Flovent Hfa 220 Mcg(NF)] 2 puff INH BID 01/24/18 [ History Confirmed 01/24/18] Review of Systems Constitutional: Negative Skin: Other - tender red swollen lateral aspect left toe nail Eyes: Negative ENT: Negative Respiratory: Negative Cardiovascular: Negative Gastrointestinal: Negative Genitourinary: Negative Motor: Negative Neurovascular: Negative Musculoskeletal: Negative Neurological: Negative Psychological: Negative Is Patient Immunocompromised?: No All Other Systems Reviewed And Are Negative: Yes PMH/Surg Hx/FS Hx/Imm Hx Previously Healthy: Yes - chronic pain, enviromental allergies Other History Of: Negative For: Anticoagulant Therapy - Surgical History Surgical History: Yes Surgery Procedure, Year, and Place: HYSTERECTOMY, D&C HYSTEROSCOPY & ABLATION. RIGHT KNEE - Family History Known Family History: Positive: None Negative: Cardiac Disease, Hypertension, Diabetes Family History: NON CONTRIBUTORY - Social History Occupation: Unemployed Lives: With Family Alcohol Use: None Substance Use Type: None Smoking Status (MU): Light Every Day Tobacco Smoker Type: Cigarettes Amount Used/How Often: 4 sigarettes/day Have You Smoked in the Last Year: Yes Household Exposure Type: Cigarettes - Immunization History Most Recent Influenza Vaccination: none Physical Exam Triage Information Reviewed: Yes Appearance: Well-Appearing, No Pain Distress, Well-Nourished Vital Signs: Initial Vital Signs Temp 98.8 F 01/24/18 13:13 Pulse 110 01/24/18 13:13 Resp 18 01/24/18 13:13 BP 143/93 01/24/18 13:13 Pulse Ox 98 01/24/18 13:13 Vital Signs Reviewed: Yes Eye Exam: Normal Eyes: Positive: Conjunctiva Clear ENT Exam: Normal ENT: Positive: Normal ENT inspection, Hearing grossly normal. Negative: Trismus , Muffled voice, Hoarse voice Dental Exam: Normal Neck exam: Normal Neck: Positive: Supple, No Lymphadenopathy Respiratory Exam: Normal Respiratory: Positive: Chest non-tender, No respiratory distress, No accessory muscle use Cardiovascular Exam: Normal Cardiovascular: Positive: RRR, Pulses Normal, Brisk Capillary Refill Musculoskeletal Exam: Normal Musculoskeletal: Positive: Strength Intact, ROM Intact, Edema @ - left lateral great toenail Neurological Exam: Normal Neurological: Positive: Alert Psychological Exam: Normal Psychological: Positive: Normal Response To Family Skin Exam: Other Skin: Positive: Other - eryhtema left lateral great toe Course/Dx - Course Course Of Treatment: warm soaks, keflex, recheck blood pressure, follow with pcp - Diagnoses Provider Diagnoses: Hypertension in poor control, left great toe paronychia Discharge - Sign-Out/Discharge Documenting (check all that apply): Patient Departure - Discharge Plan Condition: Stable Disposition: HOME Prescriptions: Cephalexin CAP* [Keflex CAP*] 500 mg PO QID 7 Days #28 cap Fluconazole [Diflucan 150 MG (NF)] 150 mg PO ONCE PRN #2 tab PRN Reason: vaginal itching Patient Education Materials: How to Stop Smoking (ED), Paronychia (ED), Hypertension (ED), Warm Compress or Soak (ED) Referrals: Víctor Jesus DPM [Doctor of Podiatric Medicine] - If Needed Marisela Kerns DPM [Doctor of Podiatric Medicine] - If Needed Rudolph López MD [Primary Care Provider] - 1 Week Gilles Crabtree DPM [Doctor of Podiatric Medicine] - If Needed - Billing Disposition and Condition Condition: STABLE Disposition: Home
== END 2018-01-24 13:52 | disposition home or self-care (01) ==
LOC: UCEAST 11:45 → EDSEX 11:45 → UCEAST 13:52
DX: L03.032 Cellulitis of left toe (principal); I10 Essential (primary) hypertension; Z88.6 Allergy status to analgesic agent; Z88.5 Allergy status to narcotic agent; Z88.0 Allergy status to penicillin; Z88.8 Allergy status to other drugs, medicaments and biological substances; F17.210 Nicotine dependence, cigarettes, uncomplicated
CPT/HCPCS: 99212; G0463

== ENCOUNTER 2019-08-21 07:57 | Emergency (ER) | payer SELFPAY ==
[2019-08-21 08:19] VITALS: BP 114/83
--- NOTE | 2019-08-21 08:43 | UC ---
General HPI - HPI Summary HPI Summary: Less than 48 hours ago developed fever, chills, bodyaches, cough and congestion. No N/V/D. Appetite is ok. Is a smoker, remote inhaler use. No flu shot. Can't afford any prescriptions. Her son uses an inhaler Meds; reviewed - History of Current Complaint Chief Complaint: UCGeneralIllness Stated Complaint: SORE THROAT BODYACHES COUGH Time Seen by Provider: 08/21/19 08:33 Hx Last Menstrual Period: 2006 Pain Intensity: 4 - Allergy/Home Medications Allergies/Adverse Reactions: Allergies Allergy/AdvReac Type Severity Reaction Status Date / Time acetaminophen Allergy GI Upset Verified 08/21/19 08:19 naproxen Allergy Hives Verified 08/21/19 08:19 oxycodone Allergy Unknown Verified 08/21/19 08:19 Reaction Details Penicillins Allergy Anaphylatic Verified 08/21/19 08:19 Shock prednisone Allergy Agitation Verified 08/21/19 08:19 Home Medications: Home Medications Acetaminophen TAB* [Tylenol TAB*] 3 tab PO Q4H PRN 08/21/19 [History Confirmed 08/21/19] PMH/Surg Hx/FS Hx/Imm Hx Previously Healthy: Yes Other History Of: Negative For: Anticoagulant Therapy - Surgical History Surgical History: Yes Surgery Procedure, Year, and Place: HYSTERECTOMY, D&C HYSTEROSCOPY & ABLATION. RIGHT KNEE - Family History Known Family History: Positive: None Negative: Cardiac Disease, Hypertension, Diabetes Family History: NON CONTRIBUTORY - Social History Alcohol Use: None Substance Use Type: None Smoking Status (MU): Light Every Day Tobacco Smoker Type: Cigarettes Amount Used/How Often: 4 sigarettes/day Have You Smoked in the Last Year: Yes Household Exposure Type: Cigarettes - Immunization History Most Recent Influenza Vaccination: none Review of Systems All Other Systems Reviewed And Are Negative: Yes Constitutional: Positive: Fever, Chills ENT: Positive: Sore Throat, Nasal Discharge Respiratory: Positive: Cough Physical Exam Triage Information Reviewed: Yes Appearance: Other: - mildly ill appearing Vital Signs: Initial Vital Signs Temp 98.5 F 08/21/19 08:16 Pulse 90 08/21/19 08:16 Resp 18 08/21/19 08:16 BP 114/83 08/21/19 08:16 Pulse Ox 100 08/21/19 08:16 Eyes: Positive: Conjunctiva Clear ENT: Positive: Pharyngeal erythema, Nasal congestion, TMs normal Neck: Positive: Supple, Nontender Respiratory: Positive: Decreased breath sounds, Other: - faint b/l expiratory wheezes Cardiovascular: Positive: RRR, No Murmur Abdomen Description: Positive: Nontender, Soft Course/Dx - Course Course Of Treatment: This is a 39 yr old with flu like symptoms Flu: Negative Viral syndrome with reactive airway disease Plan Flu test is negative SPoke with health department and recommends self quarantining yourself until your symptoms have resolved Recommend albuterol inhaler with spacer 2 puffs every 4 hours as needed with spacer Rest, fluids and ibuprofen as needed as directed for pain/fever If symptoms persist or worsen, follow up with PCP or return to urgent care - Diagnoses Provider Diagnosis: Reactive airway disease, Viral syndrome Discharge ED - Sign-Out/Discharge Documenting (check all that apply): Patient Departure All imaging exams completed and their final reports reviewed: No Studies - Discharge Plan Condition: Fair Disposition: HOME Patient Education Materials: Reactive Airways Disease (ED) Forms: *Work Release Referrals: Rudolph López MD [Primary Care Provider] - Additional Instructions: Flu test is negative SPoke with health department and recommends self quarantining yourself until your symptoms are improving Recommend albuterol inhaler with spacer 2 puffs every 4 hours as needed with spacer Rest, fluids and ibuprofen as needed as directed for pain/fever If symptoms persist or worsen, follow up with PCP or return to urgent care - Billing Disposition and Condition Condition: FAIR Disposition: Home
[2019-08-21 09:26] LABS: Influenza A Molecular Negative (Negative); Influenza B Molecular Negative (Negative)
[2019-08-21] MEDS ORDERED: Albuterol HFA INHALER* 8 gm MDI INH ONE (10:17)
== END 2019-08-21 10:52 | disposition home or self-care (01) ==
LOC: UCEAST 07:57
DX: J45.909 Unspecified asthma, uncomplicated (principal); B34.9 Viral infection, unspecified; F17.210 Nicotine dependence, cigarettes, uncomplicated; Z88.6 Allergy status to analgesic agent; Z88.5 Allergy status to narcotic agent; Z88.0 Allergy status to penicillin; Z88.8 Allergy status to other drugs, medicaments and biological substances
CPT/HCPCS: 99212; A9270-GY; G0463